=== PATIENT | male | born 1945 | race Caucasian/White ===

== ENCOUNTER → 2017-02-09 | Outpatient (CLI) | payer MEDICARE, OTHER ==
[~2017-02-09] MED LIST: ASPIRIN 81MG TA81 MG PO; ATENOLOL50 M1 PO; ISOSORBIDE MONO30 MG PO; LEVAQUIN500 MG PO; NATURE'S BLEND F1 MG PO; PREDNISONE 20MG20 MG PO; SIMVASTATIN80 MG PO; TESSALON PERLE100 MG PO
--- NOTE | 2017-02-09 14:32 | RADIOLOGY REPORT PS360 ---
PROCEDURE: 2-D M-mode and color Doppler study INDICATIONS FOR THE TEST: Chest pain COPD Heart Murmur+ Tobacco Smoking+ Palpitations Fatigue Syncope Edema Hypertension+Diabetes Mellitus Rheumatic Fever SOB COBB Obesity Hyperlipidemia Family History HD Additional History CAD,PAD, CABG 1986 PATIENT INFORMATION HEIGHT: 66 WEIGHT:145 GENDER: Male B/P:125/75 2-D/M-MODE INTERPRETATION: 2-D MEASUREMENTS OBSERVED VALUES IN CMS Right Ventricular Dimension (RVDd) 2.2 Interventricular Septum (Thickness)(IVsd) 2.0 Left Ventricular Internal Dimensions(LVIDd) 3.3 Left Ventricular Posterior Wall (Thickness)(LVPWd) 1.6 Aortic Root 3.3 Aortic Cusp Separation 1.8 Left Atrial Dimensions (LAD) 3.8 2D 1. The left atrium is mildly enlarged, left ventricle is normal size, there is moderate concentric left ventricular hypertrophy present, visually estimated ejection fraction 55% with no obvious regional wall motion abnormality. 2. The right atrium and right ventricle are normal size and contractility. 3. The aortic valve morphology is not well visualized. 4. The mitral valve has mitral calcification there is no mitral stenosis. 5. The tricuspid valve is structurally normal. 6. The pulmonic valve is not well visualized. 7. No significant pericardial effusion noted. DOPPLER INTERROGATION: 1. The maximum aortic out flow velocity recorded study 2.9 m/s resulting in a mean gradient across valve of 13 mmHg, this represents mild aortic stenosis, there is no aortic insufficiency. 2. The mitral inflow velocity within normal range, there is no mitral stenosis, there is mild mitral regurgitation. Grade 1 diastolic dysfunction seen without tissue Doppler evidence of raised left atrial pressure. 3. There is mild tricuspid regurgitation noted, tricuspid regurgitant jet velocity insufficient for calculation of the right ventricular systolic pressure. CONCLUSION: 1. Mildly enlarged left atrium, normal left ventricular size, mild concentric left ventricular hypertrophy, visually estimated ejection fraction 55% with no obvious regional wall motion abnormality, grade 1 diastolic dysfunction seen without tissue Doppler evidence of raised left atrial pressure. 2. Thickened and calcified aortic valve with mean gradient across valve of the 13 mmHg represents mild aortic stenosis, there is no aortic insufficiency. 3. Mild mitral and tricuspid regurgitation, tricuspid and jet velocity insufficient for cannulation of the right ventricular systolic pressure. 4. No significant pericardial effusion noted.
== END ==
LOC: RT 07:53
DX: R01.1 Cardiac murmur, unspecified (principal); I25.10 Atherosclerotic heart disease of native coronary artery without angina pectoris; I73.9 Peripheral vascular disease, unspecified; I10 Essential (primary) hypertension; Z72.0 Tobacco use; Z95.5 Presence of coronary angioplasty implant and graft

== ENCOUNTER 2017-02-28 11:36 | Day surgery (SDC) | payer MEDICARE, OTHER ==
[~2017-02-28] VITALS: Ht 167.6 cm; Wt 66.7 kg
--- NOTE | 2017-02-28 13:11 | Operative Note ---
Colonoscopy ([facility]) Procedure date: 02/28/17 Date of : 47 Procedure:Colonoscopy Colonoscopy with cold snare polypectomy and cold biopsies Indications: Mr. Ho is a 71-year-old gentleman who is here for follow-up screening/ surveillance colonoscopy. The patient did undergo colonoscopy by me in November 2004 and had sigmoid diverticulosis. The patient recently had a positive fecal Cologuard test. He does state that his mother had colon cancer in her late 70s or early 80s. He reports no abdominal pain, weight loss, change in his bowel habits or rectal bleeding. Performing Provider: Marcin Hollins MD Referrring Provider: Abel Waldrop M.D. Sedation: MAC sedation Procedure: Prior to the procedure, a history and physical exam was performed, and patient medications and allergies were reviewed. The risks and benefits of the procedure and the sedation options and risks were discussed with the patient. All questions were answered and informed consent was obtained. Patient identification and proposed procedure were verified by the physician and the nurse. The patient was placed in a left lateral decubitus position. Throughout the procedure, the patient's blood pressure, pulse, and oxygen saturations were monitored continuously. Findings: On digital rectal examination there was normal rectal tone. There were no external hemorrhoids. The prostate was 2+, smooth, soft, symmetric without nodules. The colonoscope was introduced through the anal canal to the rectum and advanced to the cecum. The ileocecal valve and appendiceal orifice were identified. The scope was advanced a short distance into the ileum which appeared grossly normal. The scope was then withdrawn into the colon. There was evidence of mucosal punched out ulceration and erosion within the ascending and transverse colon suggestive of nonsteroidal anti-inflammatory drug colopathy. Cold biopsies were obtained from the ascending and transverse to exclude IBD. There were 2 colon polyps identified in the descending 1 and rectosigmoid 1. These ranged in size from 6-7 mm and were all removed via cold snare polypectomy. There were scattered diverticuli throughout the descending and sigmoid colon (LEFT colon). The rectum itself was normal. Upon retroflexion within the rectum there were grade 1 internal hemorrhoids. Impressions: 1. Colonic polyps 2 2. Left-sided diverticulosis 3. RIGHT sided colitis versus nonsteroidal anti-inflammatory drug colopathy 4. Grade 1 internal hemorrhoids Recommendations: I will follow up the polyp pathology and recommend repeat colonoscopy again in 5 years based upon the patient's family history and polyp histology. I would recommend colonoscopy in no greater than 5 years especially with slightly less than optimal preparation. I do feel that the colonic mucosal ulceration/erosion or related to nonsteroidal anti-inflammatory drugs that we will follow-up the biopsies. The patient does take ibuprofen and aspirin. I would encourage fiber supplementation on a long-term daily maintenance basis. Complications: None EBL (ml): 0 at 1310
--- NOTE | 2017-02-28 13:12 | Anesthesia Record ---
Anesthesia Record Part I Total IV fluids: 700 EBL (ml): 0 Urine Output: 0 B/P: 87/61 % SaO2: 92 Pulse: 67 Resps: 16 Temp: 97.9 Patient is: Drowsy, Stable Stable to PACU at: 1307 (sds) at 1312
--- NOTE | 2017-02-28 13:13 | Anesthesia Record ---
Anesthesia Record Part II Discharge time: 1307 Destination: Same day surgery PACU nurse assessment review? Yes Patient is: Stable Anesthesia complications? No at 1315
[2017-02-28 16:26] VITALS: BP 99/52
== END 2017-02-28 14:03 | disposition home or self-care (01) ==
LOC: SDC 11:36
PROVIDERS: Internal Medicine Gastroenterology
PROC: 0DBN8ZX Excision of Sigmoid Colon, Via Natural or Artificial Opening Endoscopic, Diagnostic (ICD-10-PCS; 2017-02-28)
PROC: 0DBM8ZX Excision of Descending Colon, Via Natural or Artificial Opening Endoscopic, Diagnostic (ICD-10-PCS; 2017-02-28)
PROC: 0DBK8ZX Excision of Ascending Colon, Via Natural or Artificial Opening Endoscopic, Diagnostic (ICD-10-PCS; 2017-02-28)
PROC: 0DBL8ZX Excision of Transverse Colon, Via Natural or Artificial Opening Endoscopic, Diagnostic (ICD-10-PCS; principal; 2017-02-28 12:30)
DX: D12.2 Benign neoplasm of ascending colon (principal); D12.3 Benign neoplasm of transverse colon; K57.30 Diverticulosis of large intestine without perforation or abscess without bleeding; K63.9 Disease of intestine, unspecified; K64.0 First degree hemorrhoids; Z80.0 Family history of malignant neoplasm of digestive organs